=== PATIENT | female | born 1990 | race Caucasian/White ===

== ENCOUNTER 2021-05-09 20:00 | Inpatient (IN) | payer OTHER ==
[2021-05-09] MEDS ORDERED: ELECTROLYTE-148 SOLN 1,000 ML IV SCH (21:00)
[2021-05-09] MEDS ORDERED: PROMETHAZINE HCL 25 MG/1 ML VIAL IVPB ONE (22:55)
[2021-05-09] MEDS ORDERED: BUTORPHANOL TARTRATE 1 MG/ML VIAL IVPB ONE (22:55)
[2021-05-09] MEDS ORDERED: BUTORPHANOL TARTRATE 1 MG/ML VIAL ONE (23:37)
[2021-05-09] MEDS ORDERED: PROMETHAZINE HCL 25 MG/1 ML VIAL ONE (23:37)
[2021-05-09] MEDS: ELECTROLYTE-148 SOLN 1,000 ML IV SCH (23:40)
[2021-05-10] MEDS ORDERED: PCA PUMP NR ONE ×2 (03:46→08:21)
[2021-05-10] MEDS ORDERED: FENTANYL/BUPIVACAINE/NS/PF - PCEA - 50 ML DISP.SYRIN EP ONE (03:47)
[2021-05-10] MEDS ORDERED: FENTANYL/BUPIVACAINE/NS/PF - PCEA - 50 ML DISP.SYRIN EP SCH (04:45)
[2021-05-10] MEDS: OXYTOCIN 30 UNITS in 0.9% NS 30 UNIT/500 ML INFUS.BAG IVPB SCH (05:20)
[2021-05-10] MEDS ORDERED: OXYTOCIN 30 UNITS in 0.9% NS 30 UNIT/500 ML INFUS.BAG IVPB ONE (05:21)
[2021-05-10] MEDS: ELECTROLYTE-148 SOLN 1,000 ML IV SCH (06:09)
[2021-05-10] MEDS ORDERED: OXYTOCIN 20 UNITS in 0.9% NS 20 UNIT/1,000 ML INFUS.BAG IV ONE (08:21)
[2021-05-10] MEDS ORDERED: OXYTOCIN 10 UNITS/ML VIAL ONE (09:52)
[2021-05-10] MEDS ORDERED: OXYTOCIN 10 UNITS/ML VIAL IM ONE (10:30)
[2021-05-10] MEDS ORDERED: BENZOCAINE 20% 57 GM BOTTLE TP PRN (10:50)
[2021-05-10] MEDS ORDERED: BISACODYL 10 MG SUPP.RECT RC PRN (10:50)
[2021-05-10] MEDS ORDERED: BENZOCAINE 28 GM HEMORRHOIDAL OINTMENT TP PRN (10:50)
[2021-05-10] MEDS ORDERED: WITCH HAZEL 50% (TUCKS) 40 PAD/JAR PAD TP PRN (10:50)
[2021-05-10] MEDS ORDERED: METHYLERGONOVINE MALEATE 0.2 MG/1 ML AMP IM PRN (10:50)
[2021-05-10] MEDS ORDERED: ACETAMINOPHEN 325 MG TABLET (FP) PO PRN (10:50)
[2021-05-10] MEDS: IBUPROFEN 600 MG TABLET (FP) PO PRN (19:07)
[2021-05-11] MEDS: IBUPROFEN 600 MG TABLET (FP) PO PRN ×3 (05:33→19:18)
[2021-05-11 08:26] LABS: BASO % 0.6 % (0-2.0); EOS % 1.3 % (0-4.5); HEMATOCRIT 26.2 % (32.4-45.2); HEMOGLOBIN 8.4 GM/dL (10.7-15.3); LYMPH % 13.6 % (8-40); MCHC 32.1 g/dl (32.0-36.0); MEAN CELL VOLUME 68.3 fl (80-96); MEAN PLT VOLUME 8.2 fl (7.5-11.1); MONO % 8.7 % (3.8-10.2); NEUT % 75.8 % (42.8-82.8); PLATELET COUNT 223 10^3/uL (134-434); RBC 3.83 M/mm3 (3.60-5.2); RDW 18.4 % (11.6-15.6); WHITE BLOOD COUNT 16.4 K/mm3 (4.0-10.0)
[2021-05-11] MEDS ORDERED: DIPHTH,PERTUSS(ACELL),TET 0.5 ML DISP.SYRIN IM ONE (10:00)
[2021-05-11 11:12] LABS: ANISOCYTOSIS 2+; MACROCYTOSIS 0; PLATELET ESTIMATE NORMAL
[2021-05-11] MEDS: OXYTOCIN 30 UNITS in 0.9% NS 30 UNIT/500 ML INFUS.BAG IVPB SCH (19:56)
[2021-05-11] MEDS: ELECTROLYTE-148 SOLN 1,000 ML IV SCH ×2 (19:56)
[2021-05-11] MEDS ORDERED: SENNOSIDES/DOCUSATE COMBO (SENNA PLUS) TABLET (UD) PO PRN (22:00)
[2021-05-12 08:38] VITALS: BP 132/82; PULSE 102; TEMP 98.2
== END 2021-05-12 11:40 | disposition home or self-care (01) | DRG 560 ==
LOC: JDEL 20:00 → JLDR 22:10 → J3W 05-10 12:45
PROVIDERS: ADMIT Specialist; ATTEND Specialist
PROC: 10D07Z6 Extraction of Products of Conception, Vacuum, Via Natural or Artificial Opening (ICD-10-PCS; principal; 2021-05-10)
PROC: 10907ZC Drainage of Amniotic Fluid, Therapeutic from Products of Conception, Via Natural or Artificial Opening (ICD-10-PCS; 2021-05-10)
PROC: 0T9B70Z Drainage of Bladder with Drainage Device, Via Natural or Artificial Opening (ICD-10-PCS; 2021-05-10)
DX: O48.0 Post-term pregnancy (principal); O69.81X0 Labor and delivery complicated by cord around neck, without compression, not applicable or unspecified; Z3A.49 Greater than 42 weeks gestation of pregnancy; O90.89 Other complications of the puerperium, not elsewhere classified; R33.8 Other retention of urine; Z3A.40 40 weeks gestation of pregnancy; Z37.0 Single live birth
CPT/HCPCS: 36415; 59025; 59409; 80053; 85025; 85027; 85610; 85730; 86780; 86850; 86900; 86901; 87389; 90715; C9803; G0463-25; U0003; U0005